=== PATIENT | female | born 1995 | race Caucasian/White ===

== ENCOUNTER 2017-05-29 23:32 | Emergency (ER) | payer MEDICAID ==
[~2017-05-29] VITALS: Ht 162.6 cm; Wt 91.2 kg
[~2017-05-29 23:32] MED LIST: ATENOLOL25 MG PO; BROMFED DM COU473 ML PO; CEFDINIR 300MG300 MG PO; FIORICET 325 MG1 TAB PO; IBUPROFEN800 MG PO; KEFLEX 500MG.500 MG PO; KEFLEX500 M1 PO; MEDROL 4MG. DOSE4 MG PO; MOTRIN400 MG PO; MUCINEX1200 MG PO; NAPROSYN 500MG500 MG PO; PERCOCET1 TAB PO; PROMETHAZINE D118 ML PO; PROVENTIL0.09 MG/A1 IH; RANITIDINE150 M1 PO
--- NOTE | 2017-05-29 23:50 | Emergency Room Report ---
History of Present Illness Time Seen by [id number] Presenting Problem in Triage Pt arrived:Walked Presenting Problem:C/O PRODUCTIVE COUGH WITH GREEN AND YELLOW SPUTUM. C/O RUNNY NOSE. C/O BURNING FEELING WHEN SHE COUGHED. 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 N Clinical Suspician of Infection? N Mental Status: 1 - Regular (Normal Baseline) Sepsis Risk:Possible Sepsis Risk Have you (or family members/close friends) recently traveled outside the [place]? N If Yes, where/when: Have you had exposure to infectious disease within the past month? N TB? Other? Specify: Source patient, RN notes reviewed, family, old records Exam Limitations no limitations Comment over the last 2 days has prod cough with greenish sputum and no hemoptysis- denied preg Cardiac Chest Pain Chest pain indicative of cardiac No Timing/Duration this evening Severity moderate ALLERGIES Coded Allergies: Carter (From STRAWBERRIES (FOOD/DRUG)) (HIVES, SWELLING OF THROAT 05/24/16) strawberry (From STRAWBERRIES (FOOD/DRUG)) (HIVES, SWELLING OF THROAT 05/24/16) Home Medications Reported Medications No Known Home Medications History Medical History General CAD? No Angina: No MS: No Hypertension? No Hyperlipidemia? No CHF? No DVT? No PE? No COPD? No Asthma? Yes Anemia? No GERD? No Gastric ulcers? No GI Bleed? No Hernia? No Thyroid Problems? No Hypothyroidism? No CVA? No Seizures? No Diabetes? No Renal Insuffiency? No End Stage Renal Disease? No UTI? No Stones? No GB Disease: No Nephritic Syndrome? No Asplenia? No Hepatitis? No Sickle Cell Disease? No Arthritis? No Migraines? No Cataracts? No Glaucoma? No MRSA? No HIV? No TB? No Anxiety? No Depression? No Cancer? 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 Respiratory cough, shortness of breath, denies wheezing Cardiovascular denies chest pain, denies syncope Gastrointestinal denies abdominal pain, denies diarrhea, denies vomiting Genitourinary denies: dysuria, frequency, hesitancy, hematuria. Musculoskeletal denies back pain, denies joint pain, denies joint swelling, denies neck pain Skin denies rash Psychiatric/Neurological denies headache, denies seizure Physical Exam Vital Signs Vital Signs Date Time Temp Pulse Resp B/P Pulse O2 O2 Flow FiO2 Ox Delivery Rate 05/294 98.4 102 20 137/91 97 - WBC >12,000 or <4,000 or 10% bands? 2 or more SIRS Criteria Met? B/P:137/91 MAP:106 Creatinine >2.0? UA output<0.5ml/kg/hr for 2 hrs? Platelet count >100,000? Lactate >2.0mmol/1? INR >1.2 or PTT > than 60 sec? Evidence of Organ Dysfunction? Provider documented clinical suspician of infection? N Sepsis Criteria Count: 2 Sepsis Risk: Possible Sepsis Risk General Appearance normal appearance Eye Exam - bilateral eye PERRL, bilateral eye EOMI Ear, Nose, Throat normal ENT inspection Neck supple Respiratory Status No: respiratory distress. Lung Sounds bilateral: rhonchi. 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 No Results/Orders Orders Procedure Date/time Status CHEST(2 VIEWS-NOT PORTABLE) 05/29 2342 Active XRAY/CT/US XRAY/CT/US XRAY chest XR interpretation by reviewed by me Xray Results normal/NAD Departure Departure Time of Disposition 9 Disposition DC Home or Self Care(routine) Clinical Impression Primary Impression: Bronchitis Condition STABLE Referrals Goldie ABDI,Des Neff (Family) Patient Instructions DI for Cough -- Adult Additional Instructions fluids and use meds and see pcp for follow up Discharge Counseling Counseled pt/family regarding diagnosis, test results, medications/RX, follow up needs, tobacco counseling,> 3min Prescriptions Current Visit Scripts Azithromycin (Zithromycin (Z-RENE) 250MG Tab) 250 MG PO DAILY #6 TAB TAKE TWO (2) TABLETS ON DAY 1, THEN ONE (1) TABLET DAY #2 THRU #5 Prednisone (Prednisone 20MG) 20 MG PO BID #10 TAB Guaifenesin/Dextromethorphan (Robitussin Cough-Chest Dm Liq) 5 ML PO TID #120 ED Critical Care Critical Care No at 0005
--- NOTE | 2017-05-29 23:50 | Emergency Room Report ---
History of Present Illness Time Seen by [id number] Presenting Problem in Triage Pt arrived:Walked Presenting Problem:C/O PRODUCTIVE COUGH WITH GREEN AND YELLOW SPUTUM. C/O RUNNY NOSE. C/O BURNING FEELING WHEN SHE COUGHED. 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 N Clinical Suspician of Infection? N Mental Status: 1 - Regular (Normal Baseline) Sepsis Risk:Possible Sepsis Risk Have you (or family members/close friends) recently traveled outside the [place]? N If Yes, where/when: Have you had exposure to infectious disease within the past month? N TB? Other? Specify: Source patient, RN notes reviewed, family, old records Exam Limitations no limitations Comment over the last 2 days has prod cough with greenish sputum and no hemoptysis- denied preg Cardiac Chest Pain Chest pain indicative of cardiac No Timing/Duration this evening Severity moderate ALLERGIES Coded Allergies: Carter (From STRAWBERRIES (FOOD/DRUG)) (HIVES, SWELLING OF THROAT 05/24/16) strawberry (From STRAWBERRIES (FOOD/DRUG)) (HIVES, SWELLING OF THROAT 05/24/16) Home Medications Reported Medications No Known Home Medications History Medical History General CAD? No Angina: No [place]: No Hypertension? No Hyperlipidemia? No CHF? No DVT? No PE? No COPD? No Asthma? Yes Anemia? No GERD? No Gastric ulcers? No GI Bleed? No Hernia? No Thyroid Problems? No Hypothyroidism? No CVA? No Seizures? No Diabetes? No Renal Insuffiency? No End Stage Renal Disease? No UTI? No Stones? No GB Disease: No Nephritic Syndrome? No Asplenia? No Hepatitis? No Sickle Cell Disease? No Arthritis? No Migraines? No Cataracts? No Glaucoma? No MRSA? No HIV? No TB? No Anxiety? No Depression? No Cancer? 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 Respiratory cough, shortness of breath, denies wheezing Cardiovascular denies chest pain, denies syncope Gastrointestinal denies abdominal pain, denies diarrhea, denies vomiting Genitourinary denies: dysuria, frequency, hesitancy, hematuria. Musculoskeletal denies back pain, denies joint pain, denies joint swelling, denies neck pain Skin denies rash Psychiatric/Neurological denies headache, denies seizure Physical Exam Vital Signs Vital Signs Date Time Temp Pulse Resp B/P Pulse O2 O2 Flow FiO2 Ox Delivery Rate 05/294 98.4 102 20 137/91 97 - WBC >12,000 or <4,000 or 10% bands? 2 or more SIRS Criteria Met? B/P:137/91 MAP:106 Creatinine >2.0? UA output<0.5ml/kg/hr for 2 hrs? Platelet count >100,000? Lactate >2.0mmol/1? INR >1.2 or PTT > than 60 sec? Evidence of Organ Dysfunction? Provider documented clinical suspician of infection? N Sepsis Criteria Count: 2 Sepsis Risk: Possible Sepsis Risk General Appearance normal appearance Eye Exam - bilateral eye PERRL, bilateral eye EOMI Ear, Nose, Throat normal ENT inspection Neck supple Respiratory Status No: respiratory distress. Lung Sounds bilateral: rhonchi. 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 No Results/Orders Orders Procedure Date/time Status CHEST(2 VIEWS-NOT PORTABLE) 05/29 2342 Active XRAY/CT/US XRAY/CT/US XRAY chest XR interpretation by reviewed by me Xray Results normal/NAD Departure Departure Time of Disposition 9 Disposition DC Home or Self Care(routine) Clinical Impression Primary Impression: Bronchitis Condition STABLE Referrals Goldie ABDI,Des Neff (Family) Patient Instructions DI for Cough -- Adult Additional Instructions fluids and use meds and see pcp for follow up Discharge Counseling Counseled pt/family regarding diagnosis, test results, medications/RX, follow up needs, tobacco counseling,> 3min Prescriptions Current Visit Scripts Azithromycin (Zithromycin (Z-RENE) 250MG Tab) 250 MG PO DAILY #6 TAB TAKE TWO (2) TABLETS ON DAY 1, THEN ONE (1) TABLET DAY #2 THRU #5 Prednisone (Prednisone 20MG) 20 MG PO BID #10 TAB Guaifenesin/Dextromethorphan (Robitussin Cough-Chest Dm Liq) 5 ML PO TID #120 ED Critical Care Critical Care No at 0005
[2017-05-30] MEDS ORDERED: ROBITUSSIN COU237 M1 PO (00:05)
[2017-05-30] MEDS ORDERED: PREDNISONE 20MG20 MG PO (00:05)
[2017-05-30] MEDS ORDERED: ZITHROMAX Z PA250 MG PO (00:05)
[2017-05-30 00:21] VITALS: BP 128/98
--- NOTE | 2017-05-30 05:41 | RADIOLOGY REPORT PS360 ---
CHEST(2 VIEWS-NOT PORTABLE) HISTORY: C/O COUGH WITH GREENISH AND YELLOW SPUTUM ORDERING PHYSICIAN: Ramona Amezcua MD PATIENT AGE: 21 years COMPARISON: None available FINDINGS: The cardiomediastinal silhouette and pulmonary vascularity are within normal limits. Increased density is present in the right infrahilar region consistent with pneumonia. Infiltrate may also be present in the anterior clear space on the lateral view. No obvious effusion No acute bony abnormalities. IMPRESSION: Right lower lobe pneumonia
== END 2017-05-30 00:21 | disposition home or self-care (01) ==
LOC: ER 23:32
DX: J20.9 Acute bronchitis, unspecified (principal); Z72.0 Tobacco use